=== PATIENT | female | born 1985 | race Caucasian/White ===

== ENCOUNTER 2024-05-13 17:19 | Emergency (ER) | payer OTHER ==
[2024-05-13] MEDS ORDERED: Dexamethasone 4 MG TAB ONE (17:54)
[2024-05-13] MEDS ORDERED: Acetaminophen 325 MG TAB ONE (17:54)
[2024-05-13] MEDS ORDERED: Ibuprofen 200 MG TAB ONE (17:54)
[2024-05-13 18:20] LABS: #Basophils 0.02 10x3/uL (0.0-0.2); #Eosinphils 0.08 10x3/uL (0.0-0.5); #Monocytes 0.63 10x3/uL (0.0-1.1); #Neutrophils 3.89 10x3/uL (1.5-8.4); %Basophils 0.4 % (0.0-2.0); %Eosinophils 1.5 % (0.0-6.0); %Lymphocytes 12.6 % (18.0-47.0); %Monocytes 11.9 % (0.0-10.0); %Neutrophils 73.2 % (40.0-75.0); Hematocrit 42.5 % (34.9-44.5); Hemoglobin 14.6 g/dL (12.0-15.5); Mean Corpuscular HGB CONC 34.4 g/dL (32.0-36.0); Mean Corpuscular Hemoglobin 30.6 pg (27.0-33.0); Mean Corpuscular Volume 89.1 fL (81.6-98.3); Mean Platelet Volume 11.1 fL (7.4-10.4); Platelet Count 164 10x3/uL (150-450); Red Blood Cell (RBC) Count 4.77 10x6/uL (3.90-5.03); White Blood Cell (WBC) Count 5.3 10x3/uL (3.5-10.5)
[2024-05-13 18:25] LABS: BHCG - Serum Negative (NEGATIVE); Pregs Control Background? CLEAR/WHITE (CLR/WHITE); Pregs Control Bar Appear? YES (CONTROL BAR)
[2024-05-13 18:29] LABS: Anion Gap 11 mmol/L (10-20); BUN (Urea Nitrogen) 12 mg/dL (7.0-18.7); Calc. Creatinine Clearance 0 mL/min (70-130); Calcium 9.4 mg/dL (7.8-10.44); Carbon Dioxide 28 mmol/L (22-29); Chloride 104 mmol/L (98-107); Estimated GFR 102; Glucose 144 mg/dL (70-105); Potassium 3.5 mmol/L (3.5-5.1); Sodium 139 mmol/L (136-145)
[2024-05-13 18:45] LABS: Influenza A by NAA Not Detected (NotDetected); Influenza B by NAA Not Detected (NotDetected); SARS-CoV-2 NAA Rapid Test DETECTED (NotDetected)
[2024-05-13] MEDS ORDERED: Morphine 4 MG/ML VIAL ONE (20:15)
== END 2024-05-13 21:20 | disposition home or self-care (01) ==
LOC: CSHERS 17:19
DX: U07.1 COVID-19 (principal); R22.0 Localized swelling, mass and lump, head; F17.210 Nicotine dependence, cigarettes, uncomplicated; F17.290 Nicotine dependence, other tobacco product, uncomplicated; Z55.6 Problems related to health literacy; Z75.3 Unavailability and inaccessibility of health-care facilities
CPT/HCPCS: 36415; 70450; 80048; 84703; 85025; 86140; 96372; J2270; J8540